=== PATIENT | male | born 1955 | race Caucasian/White ===

== ENCOUNTER 2016-11-17 16:45 | Emergency (ER) | payer BC, MEDICARE, OTHER ==
[~2016-11-17] VITALS: Ht 190.5 cm; Wt 106.3 kg
[2016-11-17 17:27] LABS: HEMATOCRIT 44.8 % (39.2-51.8); WHITE BLOOD COUNT 10.7 x10^3/uL (3.4-10)
[2016-11-17 17:36] LABS: BLOOD UREA NITROGEN 19 mg/dL (7-18)
[2016-11-17 17:39] LABS: ASPARTATE AMINO TRANSFERASE 22 U/L (15-37)
[2016-11-17] MEDS ORDERED: SODIUM CHLORIDE FLUSH 10ML SYR IVF ONE (18:00)
[2016-11-17] MEDS ORDERED: SODIUM CHLORIDE 0.9% 1,000 ML IV ONE (18:00)
[2016-11-17] MEDS ORDERED: [UNRECOGNIZED DRUG - REMARK] (18:21)
[2016-11-17] MEDS ORDERED: ALLO300T PO (18:21)
[2016-11-17] MEDS ORDERED: COLC0.6T37 PO (18:21)
[2016-11-17] MEDS ORDERED: ONDANSETRON 2MG/ML, 2ML IVPush ONE (19:30)
[2016-11-17] MEDS ORDERED: HYDROmorphone 1 MG/ML, 1ML IVPush PRN (19:30)
[2016-11-17] MEDS ORDERED: HYDROmorphone 1 MG/ML, 1ML ONE (19:44)
[2016-11-17] MEDS ORDERED: ONDANSETRON 2MG/ML, 2ML ONE (19:44)
[2016-11-17 19:51] VITALS: BP 115/73
== END 2016-11-17 20:06 | disposition home or self-care (01) ==
LOC: ED 19:31
DX: G43.809 Other migraine, not intractable, without status migrainosus (principal); H49.9 Unspecified paralytic strabismus; I10 Essential (primary) hypertension
CPT/HCPCS: 36415; 70551; 80053; 82140; 85025; 85610; 85730; 93005; 96361; 96374; 96375; 99285; J1170; J2405; J7030